=== PATIENT | female | born 1965 | race Caucasian/White ===

== ENCOUNTER → 2016-07-01 | Outpatient (CLI) | payer BC ==
[~2016-07-01] MED LIST: LORA-741 PO; PARO10TA PO; SIMV10TA2 PO
== END | disposition home or self-care (01) ==
LOC: C.LABPVFM 09:27
PROVIDERS: ATTEND Family Medicine
DX: J02.9 Acute pharyngitis, unspecified (principal)

== ENCOUNTER → 2016-08-24 | Outpatient (CLI) | payer BC ==
[2016-08-24 13:25] LABS: BLOOD UREA NITROGEN 17 mg/dl (7-18); BUN/CREATININE RATIO 24.5 (10-20); CALCIUM 8.8 mg/dl (8.5-10.1); CARBON DIOXIDE 27 mmol/L (21-32); CHLORIDE 110 mmol/L (98-107); CREATININE 0.71 mg/dl (0.60-1.20); GLUCOSE 121 mg/dl (70-99); SODIUM 144 mmol/L (136-145)
[2016-08-24 13:28] LABS: CHOLESTEROL 178 mg/dl (0-200); CHOLESTEROL/HDL RATIO 2.3; HDL CHOLESTEROL 78 mg/dl; LDL CHOLESTEROL CALCULATED 86 mg/dl; TRIGLYCERIDES 69 mg/dl (0-150); VERY LOW DENSITY LIPOPROT CALC 14 mg/dl
== END | disposition home or self-care (01) ==
LOC: C.LABPVFM 07:34
PROVIDERS: ATTEND Nurse Practitioner
DX: E78.01 Familial hypercholesterolemia (principal)

== ENCOUNTER → 2016-09-01 | Outpatient (CLI) | payer BC ==
--- NOTE | 2016-09-02 14:33 | MAMMOGRAPHY REPORT ---
BILATERAL DIGITAL SCREENING MAMMOGRAM TOMOSYNTHESIS WITH CAD: 09/01/2016 CLINICAL HISTORY: Routine screening. Patient has no complaints. TECHNIQUE: Breast tomosynthesis in addition to standard 2D mammography was performed. Current study was also evaluated with a Computer Aided Detection (CAD) system. COMPARISON: Comparison is made to exams dated: 08/14/2015 mammogram, 07/18/2014 mammogram, 05/18/2013 ma mmogram, 05/12/2012 mammogram, 05/07/2011 mammogram, and 05/05/2010 mammogram - [facility]. BREAST COMPOSITION: The tissue of both breasts is heterogeneously dense, which may obscure small ma sses. FINDINGS: The breast parenchymal pattern is similar to prior exams. No suspicious mass, architectur al distortion or cluster of suspicious microcalcifications is seen. IMPRESSION: ACR BI-RADS CATEGORY 1: NEGATIVE There is no mammographic evidence of malignancy. A 1 year screening mammogram is recommended. The p atient will receive written notification of the results. Approximately 10% of breast cancers are not detected with mammography. A negative mammographic repor t should not delay biopsy if a clinically suggestive mass is present. Adele Mckeon M.D. ay/:09/01/2016 18:05:29 [employer] Furnace: Niki GAVIN(R)(M), [facility] letter sent: Normal 1/2 BI-RADS Code: ACR BI-RADS Category 1: Negative
== END | disposition home or self-care (01) ==
LOC: C.MAMM 16:01
PROVIDERS: ATTEND Obstetrics & Gynecology
DX: Z12.31 Encounter for screening mammogram for malignant neoplasm of breast (principal)

== ENCOUNTER → 2017-04-07 | Outpatient (CLI) | payer BC ==
--- NOTE | 2017-04-07 10:10 | DIAGNOSTIC IMAGING REPORT ---
RIGHT SHOULDER 3 VIEWS CLINICAL HISTORY: Chronic right shoulder pain. FINDINGS: 3 views of the right shoulder are obtained. No prior studies are available for comparison at the time of dictation. The skeletal structures are well mineralized. No fracture or dislocation is seen. The glenohumeral and acromioclavicular joints are preserved. The overlying soft tissues are within normal limits. The imaged right upper lobe lung parenchyma appears clear. IMPRESSION: No acute bony abnormality is seen in the right shoulder. Electronically signed by: Jerome Olivas M.D. 04/07/2017 10:08 AM Dictated Date/Time: 04/07/2017 9:57 AM
== END | disposition home or self-care (01) ==
LOC: C.RDSM 13:11
PROVIDERS: ATTEND Internal Medicine
DX: M25.511 Pain in right shoulder (principal)

== ENCOUNTER → 2017-08-26 | Outpatient (CLI) | payer OTHER ==
[~2017-08-26] VITALS: Ht 165.1 cm; Wt 71.5 kg
[2017-08-26 14:27] VITALS: BP 111/77; PULSE 76; Ht 165.1 cm; Wt 71.5 kg
== END | disposition home or self-care (01) ==
LOC: C.NEUR 13:20
PROVIDERS: ATTEND Internal Medicine Pulmonary Disease
DX: G47.33 Obstructive sleep apnea (adult) (pediatric) (principal); R06.83 Snoring

== ENCOUNTER → 2017-09-06 | Outpatient (CLI) | payer OTHER ==
--- NOTE | 2017-09-07 12:45 | MAMMOGRAPHY REPORT ---
BILATERAL DIGITAL SCREENING MAMMOGRAM TOMOSYNTHESIS WITH CAD: 09/06/2017 CLINICAL HISTORY: Routine screening. Patient has no complaints. TECHNIQUE: Breast tomosynthesis in addition to standard 2D mammography was performed. Current study was also evaluated with a Computer Aided Detection (CAD) system. COMPARISON: Comparison is made to exams dated: 09/01/2016 mammogram, 08/14/2015 mammogram, 07/18/2014 ma mmogram, 05/18/2013 mammogram, 05/12/2012 mammogram, and 05/07/2011 mammogram - [facility]. BREAST COMPOSITION: The tissue of both breasts is heterogeneously dense, which may obscure small mas ses. FINDINGS: The parenchymal pattern is unchanged. No developing mass, architectural distortion or clus ter of suspicious microcalcifications is seen in either breast. IMPRESSION: ACR BI-RADS CATEGORY 2: BENIGN There is no mammographic evidence of malignancy. A 1 year screening mammogram is recommended. The pa tient will receive written notification of the results. Approximately 10% of breast cancers are not detected with mammography. A negative mammographic report should not delay biopsy if a clinically suggestive mass is present. Adele Mckeon M.D. ay/:09/06/2017 16:50:40 District Or District Office Director: Rosy GAVIN(R)(M), [facility] letter sent: Normal 1/2 BI-RADS Code: ACR BI-RADS Category 2: Benign
== END | disposition home or self-care (01) ==
LOC: C.MAMM 16:06
PROVIDERS: ATTEND Obstetrics & Gynecology
DX: Z12.31 Encounter for screening mammogram for malignant neoplasm of breast (principal)

== ENCOUNTER 2017-09-14 09:13 | Emergency (ER) | payer OTHER ==
[~2017-09-14] VITALS: Ht 165.1 cm; Wt 72.0 kg
[2017-09-14 09:22] VITALS: TEMP 36.5; Ht 165.1 cm; Wt 72.0 kg
[2017-09-14] MEDS ORDERED: MECLIZINE HCL 25 MG TAB PO STA (09:32)
[2017-09-14] MEDS ORDERED: SODIUM CHLORIDE 0.9% 1000ML 1,000 ML IV STA (09:32)
[2017-09-14] MEDS ORDERED: ONDANSETRON INJ 2 MG/ML 2 ML VIAL IV STA (09:32)
[2017-09-14] MEDS ORDERED: KETOROLAC TROMETHAMINE 30 MG/ML VIAL IV STA (09:32)
[2017-09-14] MEDS ORDERED: SIMV-151 PO (09:42)
[2017-09-14] MEDS ORDERED: PXL20 PO (09:42)
--- NOTE | 2017-09-14 09:47 | DIAGNOSTIC IMAGING REPORT ---
CHEST ONE VIEW PORTABLE CLINICAL HISTORY: 52 years-old Female presenting with EVALUATE WEAKNESS. TECHNIQUE: Portable upright AP view of the chest was obtained. COMPARISON: 11/11/2014. FINDINGS: Atherosclerosis of the aortic arch. Cardiac silhouette top normal in size. Mildly low lung volumes. No focal opacity. No large effusion or pneumothorax. Osseous structures normal. Upper abdomen normal. IMPRESSION: 1. No acute cardiopulmonary disease. Electronically signed by: Perez Manrique M.D. 09/14/2017 9:46 AM Dictated Date/Time: 09/14/2017 9:45 AM
[2017-09-14 09:59] VITALS: O2SAT 99
[2017-09-14 10:04] LABS: BASO % 0.4 %; BASO ABS # 0.03 K/uL (0-0.2); EOS % 1.2 %; EOS ABS # 0.09 K/uL (0-0.5); HEMOGLOBIN 14.5 g/dL (12.0-16.0); IG# 0.01 K/uL (0.00-0.02); LYMPH % 17.5 %; LYMPH ABS # 1.33 K/uL (1.2-3.4); MEAN CELL VOLUME 87.6 fL (80-100); MEAN CORPUSCULAR HGB CONC 35.4 g/dl (32-36); MEAN PLATELET VOLUME 10.6 fL (7.4-10.4); MONO ABS # 0.53 K/uL (0.11-0.59); NEUT % 73.8 %; NEUT ABS # 5.59 K/uL (1.4-6.5); PLATELET COUNT 246 K/uL (130-400); RED CELL DISTRIBUTION WIDTH CV 13.7 % (11.5-14.5); RED CELL DISTRIBUTION WIDTH SD 43.7 fL (36.4-46.3); WHITE BLOOD COUNT 7.58 K/uL (4.8-10.8)
--- NOTE | 2017-09-14 10:09 | DIAGNOSTIC IMAGING REPORT ---
HEAD WITHOUT CONTRAST (CT) CLINICAL HISTORY: 52 years-old Female with EVALUATE WEAKNESS. Acute weakness TECHNIQUE: Multiple axial CT images of the head were obtained without contrast. A dose lowering technique was utilized adhering to the principles of ALARA. CT DOSE: 638.56 mGycm COMPARISON: CT head 12/17/2009. FINDINGS: No acute intracranial hemorrhage, midline shift, intracranial mass, hydrocephalus, territorial ischemia or abnormal extra-axial collection. The calvarium is intact. The paranasal sinuses, mastoid air cells, and middle ear cavities are clear. IMPRESSION: No acute intracranial abnormality. The above report was generated using voice recognition software. It may contain grammatical, syntax or spelling errors. Electronically signed by: Ady Sharpe M.D. 09/14/2017 10:08 AM Dictated Date/Time: 09/14/2017 10:05 AM
[2017-09-14 10:19] LABS: ALBUMIN 4.2 gm/dl (3.4-5.0); BLOOD UREA NITROGEN 18 mg/dl (7-18); CALCIUM 9.4 mg/dl (8.5-10.1); CARBON DIOXIDE 23 mmol/L (21-32); CREATININE 0.83 mg/dl (0.60-1.20); GLUCOSE 139 mg/dl (70-99); LIPASE 160 U/L (73-393); POTASSIUM 3.4 mmol/L (3.5-5.1); SODIUM 138 mmol/L (136-145)
[2017-09-14 10:30] LABS: ALKALINE PHOSPHATASE 73 U/L (45-117); ALT/SGPT 28 U/L (12-78); AST/SGOT 26 U/L (15-37); TOTAL PROTEIN 8.1 gm/dl (6.4-8.2)
--- NOTE | 2017-09-14 13:22 | DIAGNOSTIC IMAGING REPORT ---
Brain MRI WITHOUT CONTRAST HISTORY: Posterior headache. Dizziness. TECHNIQUE: Multiplanar multisequence MRI of the brain was performed without the use of contrast. COMPARISON STUDY: Head CT 09/14/2017. FINDINGS: There are no areas of restricted diffusion to suggest acute infarction. The midline structures are intact. The paranasal sinuses are clear. The mastoid air cells are clear. The ventricles and sulci are within normal limits for age. There is no mass, hematoma, midline shift. The major vascular flow-voids at the skull base are well maintained. There is a 4 mm focus of increased T2 signal within the left posterior occipital lobe on image 22 of 25 of the axial FLAIR sequence. This is not confirmed on the additional sequences. Therefore, this could represent a tiny focus of gliosis and is of doubtful clinical significance. IMPRESSION: No acute intracranial abnormality. Electronically signed by: Rigoberto Chen M.D. 09/14/2017 1:21 PM Dictated Date/Time: 09/14/2017 1:11 PM
[2017-09-14] MEDS ORDERED: MECL-91 PO (13:31)
[2017-09-14 13:41] VITALS: BP 117/67; PULSE 64; O2SAT 96
--- NOTE | 2017-09-14 13:54 | EMERGENCY ROOM VISIT NOTE ---
History Report prepared by Rowena: Gustavo Munoz Under the Supervision of: Dr. Colby Gomez D.O. First contact with patient: 09:22 Chief Complaint: VERTIGO Stated Complaint: ILLNESS History of Present Illness The patient is a 52 year old female who presents to the Emergency Room with complaints of constant dizziness beginning 3.5 hours ago. She also complains of nausea, vomiting, and diarrhea. The patient states that she also has a severe headache to the back of her head which began right after vomiting at 8 AM. She has a history of vertigo once prior and states that her symptoms feel similar, except she did not have a headache at that time. Her dizziness is improved with keeping her eyes closed, and worsened with moving her head. The patient woke up today feeling normal. She states that her dizziness began with rolling over in bed after taking her dogs out. Pt denies change in vision, fevers, chest pain, shortness of breath, pain with urination, and melena. She has no history of brain aneurysm, previous stroke, or previous ICH. Source of History: patient Onset: 3.5 hours ago Quality: other (dizziness) Timing: constant Modifying Factors (Worsening): other (moving head) Modifying Factors (Relieving): other (keeping eyes closed) Associated Symptoms: + headache, + nausea, + vomiting, + diarrhea, No fevers , No chest pain, No SOB, No abdominal pain, No melena, No urinary symptoms Review of Systems See HPI for pertinent positives & negatives. A total of 10 systems reviewed and were otherwise negative. Past Medical & Surgical Medical Problems: (1) High cholesterol (2) Pain of left scapula (3) Vertigo Family History Heart disease High cholesterol Social History Smoking Status: Never Smoker Alcohol Use: occasionally Marital Status: in relationship Housing Status: lives with significant other Occupation Status: employed Current/Historical Medications Scheduled Lorazepam (Ativan), 0.5 MG PO HS PRN Meclizine HCl (Meclizine 25), 25 MG PO TID Paroxetine (Paroxetine HCl), 20 MG PO DAILY Simvastatin (Simvastatin), 20 MG PO DAILY Allergies Coded Allergies: No Known Allergies (Unverified , 09/14/17) Physical Exam Vital Signs Date Time Temp Pulse Resp B/P (MAP) Pulse Ox O2 Delivery O2 Flow Rate FiO2 09/14/17 13:41 64 17 117/67 96 09/14/17 13:08 64 17 117/67 96 Room Air 09/14/17 12:13 49 16 113/78 97 Room Air 09/14/17 10:35 48 16 128/80 09/14/17 10:30 54 16 140/77 57 129/79 71 10/79 09/14/17 10:17 53 09/14/17 09:59 99 Room Air 09/14/17 09:59 99 Room Air 09/14/17 09:22 36.5 54 20 142/86 99 Physical Exam GENERAL: Sitting up in bed, disheveled, no distress, non-toxic EYE EXAM: normal conjunctiva. PERRL and EOM's intact. OROPHARYNX: no exudate, no erythema, lips, buccal mucosa, and tongue normal and mucous membranes are moist NECK: supple, no nuchal rigidity, no adenopathy, non-tender LUNGS: Clear to auscultation. Normal chest wall mechanics HEART: no murmurs, S1 normal and S2 normal ABDOMEN: abdomen soft, non-tender, normo-active bowel sounds, no masses, no rebound or guarding. BACK: Back is symmetrical on inspection and there is no deformity, no midline tenderness, no CVA tenderness. SKIN: no rashes and no bruising UPPER EXTREMITIES: upper extremities are grossly normal. LOWER EXTREMITIES: No pitting edema. NEURO EXAM: Normal sensorium, cranial nerves II-XII intact, normal speech, no weakness of arms, no weakness of legs. No drift. Finger to nose intact. Gross sensation intact. Rapid alternating movements of upper extremities intact. Medical Decision & Procedures ER Provider Diagnostic Interpretation: Radiology results as stated below per my review and the radiologist's interpretation: HEAD WITHOUT CONTRAST (CT) FINDINGS: No acute intracranial hemorrhage, midline shift, intracranial mass, hydrocephalus, territorial ischemia or abnormal extra-axial collection. The calvarium is intact. The paranasal sinuses, mastoid air cells, and middle ear cavities are clear. IMPRESSION: No acute intracranial abnormality. The above report was generated using voice recognition software. It may contain grammatical, syntax or spelling errors. Electronically signed by: Ady Sharpe M.D. 09/14/2017 10:08 AM CHEST ONE VIEW PORTABLE FINDINGS: Atherosclerosis of the aortic arch. Cardiac silhouette top normal in size. Mildly low lung volumes. No focal opacity. No large effusion or pneumothorax. Osseous structures normal. Upper abdomen normal. IMPRESSION: 1. No acute cardiopulmonary disease. Electronically signed by: Perez Manrique M.D. 09/14/2017 9:46 AM Brain MRI WITHOUT CONTRAST FINDINGS: There are no areas of restricted diffusion to suggest acute infarction. The midline structures are intact. The paranasal sinuses are clear. The mastoid air cells are clear. The ventricles and sulci are within normal limits for age. There is no mass, hematoma, midline shift. The major vascular flow-voids at the skull base are well maintained. There is a 4 mm focus of increased T2 signal within the left posterior occipital lobe on image 22 of 25 of the axial FLAIR sequence. This is not confirmed on the additional sequences. Therefore, this could represent a tiny focus of gliosis and is of doubtful clinical significance. IMPRESSION: No acute intracranial abnormality. Electronically signed by: Rigoberto Chen M.D. 09/14/2017 1:21 PM Laboratory Results 09/14/17 09:55 Red Blood Count 4.68, Mean Corpuscular Volume 87.6, Mean Corpuscular Hemoglobin 31.0, Mean Corpuscular Hemoglobin Concent 35.4, Mean Platelet Volume 10.6, Neutrophils (%) (Auto) 73.8, Lymphocytes (%) (Auto) 17.5, Monocytes (%) (Auto) 7.0, Eosinophils (%) (Auto) 1.2, Basophils (%) (Auto) 0.4, Neutrophils # (Auto) 5.59, Lymphocytes # (Auto) 1.33, Monocytes # (Auto) 0.53, Eosinophils # (Auto) 0.09, Basophils # (Auto) 0.03 09/14/17 09:55 Test 09/14/17 09:55 09/14/17 11:29 White Blood Count 7.58 K/uL (4.8-10.8) Red Blood Count 4.68 M/uL (4.2-5.4) Hemoglobin 14.5 g/dL (12.0-16.0) Hematocrit 41.0 % (37-47) Mean Corpuscular Volume 87.6 fL (80-100) Mean Corpuscular Hemoglobin 31.0 pg (25-34) Mean Corpuscular Hemoglobin Concent 35.4 g/dl (32-36) Platelet Count 246 K/uL (130-400) Mean Platelet Volume 10.6 fL (7.4-10.4) Neutrophils (%) (Auto) 73.8 % Lymphocytes (%) (Auto) 17.5 % Monocytes (%) (Auto) 7.0 % Eosinophils (%) (Auto) 1.2 % Basophils (%) (Auto) 0.4 % Neutrophils # (Auto) 5.59 K/uL (1.4-6.5) Lymphocytes # (Auto) 1.33 K/uL (1.2-3.4) Monocytes # (Auto) 0.53 K/uL (0.11-0.59) Eosinophils # (Auto) 0.09 K/uL (0-0.5) Basophils # (Auto) 0.03 K/uL (0-0.2) RDW Standard Deviation 43.7 fL (36.4-46.3) RDW Coefficient of Variation 13.7 % (11.5-14.5) Immature Granulocyte % (Auto) 0.1 % Immature Granulocyte # (Auto) 0.01 K/uL (0.00-0.02) Anion Gap 11.0 mmol/L (3-11) Est Creatinine Clear Calc Drug Dose 77.1 ml/min Estimated GFR () 92.7 Estimated GFR (Non- 79.9 BUN/Creatinine Ratio 22.1 (10-20) Calcium Level 9.4 mg/dl (8.5-10.1) Magnesium Level 2.0 mg/dl (1.8-2.4) Total Bilirubin 0.6 mg/dl (0.2-1) Direct Bilirubin 0.1 mg/dl (0-0.2) Aspartate Amino Transf (AST/SGOT) 26 U/L (15-37) Alanine Aminotransferase (ALT/SGPT) 28 U/L (12-78) Alkaline Phosphatase 73 U/L (45-117) Troponin I < 0.015 ng/ml (0-0.045) Total Protein 8.1 gm/dl (6.4-8.2) Albumin 4.2 gm/dl (3.4-5.0) Lipase 160 U/L (73-393) Thyroid Stimulating Hormone (TSH) 2.210 uIu/ml (0.300-4.500) Urine Color YELLOW Urine Appearance CLOUDY (CLEAR) Urine pH >= 9.0 (4.5-7.5) Urine Specific Viola 1.021 (1.000-1.030) Urine Protein NEG (NEG) Urine Glucose (UA) NEG (NEG) Urine Ketones 2+ (NEG) Urine Occult Blood NEG (NEG) Urine Nitrite NEG (NEG) Urine Bilirubin NEG (NEG) Urine Urobilinogen NEG (NEG) Urine Leukocyte Esterase SMALL (NEG) Urine WBC (Auto) 5-10 /hpf (0-5) Urine RBC (Auto) 0-4 /hpf (0-4) Urine Hyaline Casts (Auto) 1-5 /lpf (0-5) Urine Epithelial Cells (Auto) >30 /lpf (0-5) Urine Bacteria (Auto) NEG (NEG) Urine Renal Epithelial Cells /lpf (0-5) Laboratory results per my review. Medications Administered Medications (Trade) Dose Ordered Sig/Brodie Route Start Time Stop Time Status Last Admin Dose Admin Sodium Chloride 1,000 ml @ 999 mls/hr Q1H1M STAT IV 09/14/17 09:32 09/14/17 10:32 DC 09/14/17 10:20 999 MLS/HR Meclizine HCl (Antivert Tab) 25 mg NOW STAT PO 09/14/17 09:32 09/14/17 09:34 DC 09/14/17 10:33 25 MG Ondansetron HCl (Zofran Inj) 4 mg NOW STAT IV 09/14/17 09:32 09/14/17 09:34 DC 09/14/17 09:50 4 MG Ketorolac Tromethamine (Toradol Inj) 30 mg NOW STAT IV 09/14/17 09:32 09/14/17 09:34 DC 09/14/17 09:50 30 MG ECG Per My Interpretation Indication: other (dizziness) Rate (beats per minute): 61 Rhythm: sinus rhythm Findings: other (Normal axis. No PVCs. ) ED Course ED COURSE: Vital signs were reviewed and appeared normal. The patients medical record was reviewed The above diagnostic studies were performed and reviewed. ED treatments and interventions as stated above. 0925: The patient was evaluated in room A3. A complete history and physical examination was performed. 0932: Ordered Toradol Inj 30 mg IV, Zofran Inj 4 mg IV, Antivert Tab 25 mg PO, Sodium Chloride 1000 ml @ 999 mls/hr IV. 1036: I reassessed the patient. Her partner has arrived and is at bedside. She adds that the patient is having a lot of trouble remembering what she used to spread mulch three days ago. 1332: Upon reevaluation, the patient is resting comfortably. I discussed my findings with the patient and she understands and agrees with the treatment plan. Based on the patients age, coexisting illnesses, exam and lab findings the decision to treat as an outpatient was made. The patient remained stable while under my care. The patient appeared well at the time of discharge. Medical Decision Differential diagnosis includes etiologies such as benign positional vertigo, dehydration, hypovolemia, anemia, tumor, infection, hypoglycemia, electrolyte abnormalities, cardiac sources, intracerebral event, toxicologic, neurologic, as well as others were entertained. Patient is a 52-year-old female who presents the ER for dizziness. She notes that started this morning after walking her dog at around 6 AM. He continued until 8 AM when she started vomiting secondary to the dizziness. After vomiting she began to have a headache. Patient was completely neurologically intact. No cerebellar signs on exam. CBC along with BMP, LFTs, bilirubin, troponin, lipase and TSH were remarkable for a mild hypokalemia at 3.4. UA was contaminated. No urinary symptoms. CT head and chest x-ray were unremarkable. MRI of the brain was negative. Patient was given fluids and meclizine. She had complete resolution of her symptoms. Patient did have slight recurrence with up walking. She was updated at bedside. She is discharged follow-up with PCP as an outpatient. No signs of stroke. Do believe that this peripheral vertigo initially causing the vomiting and headache. Discussed with Pt concerning signs and symptoms to watch out for. Pt was instructed to follow up with their PCP and discussed with the patient their option to return to the ED at anytime for persistent or worsening symptoms. The appropriate anticipatory guidance and out-patient management, including indications for return to the emergency department, were explained at length to the patient and understood. Medication Reconcilliation Current Medication List: was personally reviewed by me Blood Pressure Screening Patient's blood pressure: Normal blood pressure Blood pressure disposition: Did not require urgent referral Impression Primary Impression: Dizziness Additional Impressions: Vertigo Hypokalemia Scribe Attestation The scribe's documentation has been prepared under my direction and personally reviewed by me in its entirety. I confirm that the note above accurately reflects all work, treatment, procedures, and medical decision making performed by me. Departure Information Dispostion Home / Self-Care Prescriptions Meclizine HCl (Meclizine 25) 25 Mg Tab 25 MG PO TID for 20 Days Prov: Colby Gomez, DO 09/14/17 Referrals Jyoti Burnett C.R.N.P (PCP) Forms HOME CARE DOCUMENTATION FORM, IMPORTANT VISIT INFORMATION, WORK / SCHOOL INSTRUCTIONS Patient Instructions ED Vertigo Unspecified, My [facility] Additional Instructions Please follow up with your primary care doctor with in the next 24 hours. Any worsening of your symptoms, please return to the ED immediately. This includes any fevers greater than 100.4, worsening pain, chest pain, shortness breath, persistent nausea, vomiting, weakness or numbness in arms or legs, unable to eat or drink, or any other concerning signs or symptoms from your standpoint. Please take Antivert as needed for dizziness. Please do not drive for the rest the day. Problem Qualifiers
== END 2017-09-14 13:42 | disposition home or self-care (01) ==
LOC: C.EDA 09:13 → EDBD 09:13 → C.EDA 13:42
DX: R42 Dizziness and giddiness (principal); E87.6 Hypokalemia; E78.00 Pure hypercholesterolemia, unspecified; Z79.899 Other long term (current) drug therapy